=== PATIENT | male | born 2000 | race Caucasian/White ===

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

== ENCOUNTER 2022-05-02 20:32 | Emergency (ER) | payer OTHER ==
[2022-05-02 20:48] VITALS: O2SAT 96
--- NOTE | 2022-05-02 21:22 | ERPHSYRPT ---
- History of Present Illness Time Seen by Provider: 05/02/22 21:31 Source: patient Exam Limitations: no limitations Patient Subjective Stated Complaint: Patient states : I was cutting a drawstring that was in gym pants with a pear knife and knife slipped cutting the back of my left forearm." Triage Nursing Assessment: Patient A/O times 4. Patient able to follow instructions without difficulty. Patient has laceration that measures 1.0 X 0.3 X 0.2 to posterior left forearm. Very minimal amounts of bleeding. Area washed with NS. Patient tolerated well. No S/S of infection. Surrounding skin WNL. Edges well approximated. Physician History: Patient accidentally cut himself with a knife while cutting the string off of his gym pants. Injury just occurred prior to arrival. Tetanus up-to-date. No other injuries reported. Wound measures 1 cm. No active bleeding. Symptoms are mild to moderate in intensity. No specific worsening or improving factors. No blunt trauma. Patient voices no other complaints or concerns at this time. Portions of this note were created with voice recognition technology. There may be grammatical, spelling, punctuation or sound alike errors Timing/Duration: today Severity: moderate Modifying Factors: Improves With: nothing Associated Symptoms: denies symptoms Allergies/Adverse Reactions: sulfamethoxazole [From Bactrim] Allergy (Severe, Verified 11/25/19 13:29) Swelling trimethoprim [From Bactrim] Allergy (Severe, Verified 11/25/19 13:29) Swelling Home Medications: Aripiprazole [Abilify Maintena] 400 mg PO DAILY 11/25/19 [History] Trazodone HCl [Desyrel] 100 mg PO DAILY 11/25/19 [History] Hx Tetanus, Diphtheria Vaccination/Date Given: No Hx Influenza Vaccination/Date Given: No Hx Pneumococcal Vaccination/Date Given: No Immunizations Up to Date: Yes Travel Risk - International Travel Have you traveled outside of the country in past 3 weeks: No - Coronavirus Screening Are you exhibiting any of the following symptoms?: No Close contact with a COVID-19 positive Pt in past 14-21 Days: No - Vaccine Status Have you recieved a Covid-19 vaccination: No - Review of Systems Constitutional: No Symptoms, No Fever, No Chills Eyes: No Symptoms Ears, Nose, & Throat: No Symptoms Respiratory: No Symptoms, No Cough, No Dyspnea Cardiac: No Symptoms, No Chest Pain, No Edema, No Syncope Abdominal/Gastrointestinal: No Symptoms, No Abdominal Pain, No Nausea, No Vomiting, No Diarrhea Genitourinary Symptoms: No Symptoms, No Dysuria Musculoskeletal: No Symptoms, No Back Pain, No Neck Pain Skin: No Symptoms, No Rash Neurological: No Symptoms, No Dizziness, No Focal Weakness, No Sensory Changes Psychological: No Symptoms Endocrine: No Symptoms Hematologic/Lymphatic: No Symptoms Immunological/Allergic: No Symptoms All Other Systems: Reviewed and Negative - Past Medical History Pertinent Past Medical History: Yes Neurological History: No Pertinent History ENT History: No Pertinent History Cardiac History: No Pertinent History Respiratory History: No Pertinent History Endocrine Medical History: No Pertinent History Musculoskeletal History: No Pertinent History GI Medical History: No Pertinent History History: No Pertinent History Psycho-Social History: Attention Deficit Disorder Male Reproductive Disorders: No Pertinent History Other Medical History: adhd. bipolar - Past Surgical History Past Surgical History: Yes Neuro Surgical History: No Pertinent History Cardiac: No Pertinent History Respiratory: No Pertinent History Gastrointestinal: No Pertinent History Genitourinary: No Pertinent History Musculoskeletal: No Pertinent History Male Surgical History: No Pertinent History Other Surgical History: tonsils. adnoids - Social History Smoking Status: Current every day smoker How long have you smoked: 5 years Exposure to second hand smoke: Yes Drug Use: none Patient Lives Alone: No - Nursing Vital Signs Nursing Vital Signs: Initial Vital Signs Temperature 98.7 F 05/02/22 20:32 Pulse Rate 88 05/02/22 20:32 Respiratory Rate 20 05/02/22 20:32 Blood Pressure 122/74 05/02/22 20:32 O2 Sat by Pulse Oximetry 96 05/02/22 20:32 Pain Scale Pain Intensity 5 - Physical Exam General Appearance: no apparent distress, alert Eye Exam: PERRL/EOMI, eyes nml inspection Ears, Nose, Throat Exam: normal ENT inspection, TMs normal, pharynx normal, moist mucous membranes Neck Exam: normal inspection, non-tender, supple, full range of motion Respiratory Exam: normal breath sounds, lungs clear, airway intact, No respiratory distress Cardiovascular Exam: regular rate/rhythm, normal heart sounds, normal peripheral pulses Gastrointestinal/Abdomen Exam: soft, normal bowel sounds, No tenderness, No distention, No mass Back Exam: normal inspection, normal range of motion, No CVA tenderness, No vertebral tenderness Extremity Exam: normal inspection, normal range of motion, pelvis stable, other (1 cm laceration medial aspect left distal forearm. No active bleeding. No other injuries reported) Neurologic Exam: alert, oriented x 3, cooperative, normal mood/affect, nml cerebellar function, nml station & gait, sensation nml, No motor deficits Skin Exam: normal color, warm, dry, No rash Lymphatic Exam: No adenopathy SpO2 Interpretation: normal SpO2: 96 O2 Delivery: Room Air Procedures - Laceration/Wound Repair Left Distal Other Time of Procedure: 21:29 Wound Location: Left (Left distal forearm medial aspect) Wound Length (cm): 1 Wound's Depth, Shape: superficial Wound Explored: clean Irrigated: Yes Hibiclens Prep: Yes Anesthesia: local, 1% Lidocaine Volume Anesthetic (ccs): 3 Wound Debrided: No debridement indicated Wound Repaired With: sutures Suture Size/Type: 5-0, nylon Number of Sutures: 3 Layer Closure?: Yes Sterile Dressing Applied?: Yes Splint Applied?: No Sling Applied?: No - Course Nursing assessment & vital signs reviewed: Yes - Progress Progress: improved Progress Note: Wound closed using 3 simple interrupted sutures. No complications. Patient tolerated procedure well. Patient neurovascular intact distally pre and post procedure. Mother at bedside. Patient mother voiced no other complaints or concerns at this time. Patient to follow-up with primary care doctor within 48 hours for reevaluation. No indication for antibiotics Portions of this note were created with voice recognition technology. There may be grammatical, spelling, punctuation or sound alike errors 05/02/22 21:32 Counseled pt/family regarding: diagnosis, need for follow-up - Departure Departure Disposition: Home Clinical Impression: Laceration Condition: Stable Critical Care Time: No Referrals: ERWIN MCCALL [Primary Care Provider] - Follow up/PCP as directed Instructions: Wound Care (DC), Laceration Repair With Stitches ED Additional Instructions: Discharge/Care Plan GEOVANNAJASS LUKE was seen on 05/02/22 in the Emergency Room. The patient was counseled regarding Diagnosis,Lab results, Imaging studies, need for follow up and when to return to the Emergency Room. Prescriptions given: Discharge Note I have spoken with the patient and/or caregivers. I have explained the patient's condition, diagnosis and treatment plan based on the information available to me at this time. I have answered the patient's and/or caregiver's questions and addressed any concerns. The patient and/or caregivers have as good understanding of the patient's diagnosis, condition and treatment plan as can be expected at this point. The vital signs have been stable. The patient's condition is stable and appropriate for discharge from the emergency department. The patient will pursue further outpatient evaluation with the primary care physician or other designated or consulting physician as outlined in the discharge instructions. The patient and/or caregivers are agreeable to this plan of care and follow-up instructions have been explained in detail. The patient and/or caregivers have received these instruction. The patient/and or caregivers are aware that any significant change in condition or worsening of symptoms should prompt an immediate return to this or the closest emergency department or call 911.
[2022-05-02 21:36] VITALS: BP 131/77; PULSE 80
== END 2022-05-02 21:32 | disposition home or self-care (01) ==
LOC: ED 20:32
DX: S51.812A Laceration without foreign body of left forearm, initial encounter (principal); W26.0XXA Contact with knife, initial encounter; Z79.899 Other long term (current) drug therapy; Z28.310 Unvaccinated for COVID-19; Z72.0 Tobacco use
CPT/HCPCS: 12001; 99281

== ENCOUNTER 2022-06-08 18:16 | Emergency (ER) | payer OTHER ==
[2022-06-08 19:05] LABS: Absolute Neutrophil Ct (ANC) 4.08 x10^3/uL (1.4-6.9); Basophil (Absolute #) 0.04 x10^3/uL (0-0.4); Eosinophil (Absolute #) 0.45 x10^3/uL (0-0.5); Hematocrit 47.6 % (42-50); Lymphocyte (Absolute #) 2.49 x10^3/uL (1.0-4.6); Lymphocytes % 33.2 % (24.0-44.0); Mean Cell Volume 95.8 fL (78-100); Mean Corpuscular Hemoglobin 32.2 pg (26-32); Mean Corpuscular Hgb Concent. 33.6 g/dL (32-36); Mean Platelet Volume 9.9 fL (7.5-11.0); Monocyte (Absolute #) 0.42 x10^3/uL (0.0-1.3); Monocytes % 5.6 % (0.0-12.0); Neutrophil % 54.4 % (36.0-66.0); Platelet Count 183 x10^3/uL (150-450); Red Blood Count 4.97 x10^6/uL (4.1-5.6); White Blood Count 7.5 x10^3/uL (4.0-10.5)
[2022-06-08 19:13] LABS: Appearance Clear (Clear); Bacteria None Seen /HPF (None Seen); Bilirubin Negative (Negative); Blood Negative (Negative); Epithelial Cells None Seen /HPF (None Seen); Glucose, Urine Negative (Negative); Hyaline Casts NONE SEEN /LPF (0-2); Ketones Trace (Negative); Leukocyte Esterase Negative (Negative); Nitrite Negative (Negative); Protein,Urine Dip Trace (Negative); RBC 0-2 /HPF (0-5); Specific Gravity 1.025 (1.005-1.030); WBC 0-2 /HPF (0-5)
[2022-06-08 19:18] LABS: ACETAMINOPHEN < 10 ug/ml (10-30); ALBUMIN 4.6 g/dL (3.5-5.0); ALKALINE PHOSPHATASE 81 U/L (38-126); ANION GAP 11.5 MEQ/L (5-15); BLOOD UREA NITROGEN 7 mg/dL (9-20); CHLORIDE 105 mmol/L (98-107); Calcium 9.1 mg/dL (8.4-10.2); Carbon Dioxide 29 mmol/L (22-30); Creatinine 1 1.04 mg/dL (0.66-1.25); EST GLOMERULAR FILTRATION RATE > 60.0 ML/MIN; Glucose 110 mg/dL (74-106); Potassium 4.4 mmol/L (3.5-5.1); SALICYLATE < 1.0 mg/dL (2-20); SGOT/AST 35 U/L (17-59); SGPT/ALT 28 U/L (0-50); SODIUM 141 mmol/L (137-145); Total Protein 7.9 g/dL (6.3-8.2)
[2022-06-08 19:25] LABS: ADD URINE CULTURE? NO (NO)
[2022-06-08 19:26] LABS: Amphetamine,Urine NEGATIVE (NEGATIVE); Barbiturate,Urine NEGATIVE (NEGATIVE); Benzodiazepine,Urine NEGATIVE (NEGATIVE); Cocaine,Urine NEGATIVE (NEGATIVE); Methadone,Urine NEGATIVE (NEGATIVE); Opiate,Urine NEGATIVE (NEGATIVE); PCP,Urine NEGATIVE (NEGATIVE); THC,Urine NEGATIVE (NEGATIVE)
--- NOTE | 2022-06-08 20:05 | ERPHSYRPT ---
- History of Present Illness Time Seen by Provider: 06/08/22 18:19 Source: patient, police Exam Limitations: no limitations Patient Subjective Stated Complaint: Pt was brought in by law enforcement due to stating to family members that he was going to kill himself while holding a knife up to his throat while they were fighting Triage Nursing Assessment: Pt was brought to the ER by law enforcement, hypertensive, denies pain, pt had been asleep at home and his family members were arguing and it woke him up and he had a headache and he got angry and was yelling at them to shut up and he placed a knife up to his neck and stated that he was going to kill himself and then at some point he put it back and his sister called 911, pt states that he thinks about suicide about once a month or so and it is only when he is angry about something, he states that he would never go through with it, pt has a hx of ADHD, pt does not have a job, pt lives with his grandmother and tonite his mother, sister and brother were all over at the house, pt was cussing some when he first arrived and we told him that he needed to settle down and he did with no issues Physician History: 21 years old male with history of ADHD, insomnia on trazodone is brought in the ER by PD after he pulled a knife up to his throat stating that he is going to kill himself. Patient reports he was having a headache, was sleeping when his mom and grandma started arguing waking him up from sleep. He got angry and argues with them to stop which they did not and he pulled a knife. Reports he did it only to stop them from arguing as he has done in the past and it worked. He denies any suicidal or homicidal ideations . He does not have a job and living with grandmother which is stressful but does not mean he wants to . Denies any ideas of hopelessness, helplessness. No history of suicidal or homicidal attempts in the past. Timing/Duration: today Severity of Symptoms-Max: moderate Severity of Symptoms-Current: moderate Context related to: living circumstances Suicidal thoughts: gesture Associated Symptoms: frustrated Previous symptoms: same symptoms as today Allergies/Adverse Reactions: sulfamethoxazole [From Bactrim] Allergy (Severe, Verified 06/08/22 18:42) Swelling trimethoprim [From Bactrim] Allergy (Severe, Verified 06/08/22 18:42) Swelling Home Medications: Trazodone HCl [Desyrel] 100 mg PO DAILY 11/25/19 [History] Hx Tetanus, Diphtheria Vaccination/Date Given: No Hx Influenza Vaccination/Date Given: No Hx Pneumococcal Vaccination/Date Given: No Immunizations Up to Date: (unknown) Travel Risk - International Travel Have you traveled outside of the country in past 3 weeks: No - Coronavirus Screening Are you exhibiting any of the following symptoms?: No Close contact with a COVID-19 positive Pt in past 14-21 Days: No - Vaccine Status Have you recieved a Covid-19 vaccination: No - Past Medical History Pertinent Past Medical History: Yes Neurological History: No Pertinent History ENT History: No Pertinent History Cardiac History: No Pertinent History Respiratory History: No Pertinent History Endocrine Medical History: No Pertinent History Musculoskeletal History: No Pertinent History GI Medical History: No Pertinent History History: No Pertinent History Psycho-Social History: Attention Deficit Disorder Male Reproductive Disorders: No Pertinent History Other Medical History: adhd - Past Surgical History Past Surgical History: Yes Neuro Surgical History: No Pertinent History Cardiac: No Pertinent History Respiratory: No Pertinent History Gastrointestinal: No Pertinent History Genitourinary: No Pertinent History Musculoskeletal: No Pertinent History Male Surgical History: No Pertinent History Other Surgical History: . - Social History Smoking Status: Current every day smoker How long have you smoked: 5 years Exposure to second hand smoke: Yes Drug Use: none Patient Lives Alone: No - Review of Systems Constitutional: No Symptoms Eyes: No Symptoms Ears, Nose, & Throat: No Symptoms Respiratory: No Symptoms Cardiac: No Symptoms Abdominal/Gastrointestinal: No Symptoms Genitourinary Symptoms: No Symptoms Musculoskeletal: No Symptoms Skin: No Symptoms Neurological: No Symptoms Psychological: Anxiety Endocrine: No Symptoms Hematologic/Lymphatic: No Symptoms Immunological/Allergic: No Symptoms - Nursing Vital Signs Nursing Vital Signs: Initial Vital Signs Temperature 98.7 F 06/08/22 18:17 Pulse Rate 94 H 06/08/22 18:17 Blood Pressure 183/97 06/08/22 18:17 O2 Sat by Pulse Oximetry 97 06/08/22 18:17 Pain Scale Pain Intensity 0 - Physical Exam General Appearance: no apparent distress, alert Eyes, Ears, Nose, Throat Exam: normal ENT inspection Neck Exam: normal inspection, non-tender, supple, full range of motion Respiratory Exam: normal breath sounds, lungs clear Cardiovascular Exam: regular rate/rhythm, normal heart sounds Gastrointestinal/Abdominal Exam: soft, normal bowel sounds, No tenderness Extremities Exam: normal inspection, normal range of motion Current Suicidality: denies suicide plan Neurological Exam: alert, calm, 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, oriented x 3 Appearance: appropriate appearance, appropriate insight, neat, no memory impairment Behavior/Eye Contact/Speech: alert & cooperative, good eye contact, normal speech Thoughts/Hallucinations: normal thought pattern, no apparent hallucination Skin Exam: normal color SpO2 Interpretation: normal SpO2: 95 O2 Delivery: Room Air - Course EKG Interpreted by Me: RATE (96), Sinus Rhythm, NORMAL AXIS, NORMAL INTERVALS, NORMAL QRS Ordered Tests: Active Orders 24 hr Category Date Time Status ACETAMINOPHEN Stat Lab 06/08/22 19:01 Completed CBC W DIFF Stat Lab 06/08/22 19:01 Completed CMP Stat Lab 06/08/22 19:01 Completed SALICYLATE Stat Lab 06/08/22 19:01 Completed UA W/RFX UR CULTURE Stat Lab 06/08/22 19:01 Completed Urine Triage Profile Stat Lab 06/08/22 19:01 Completed Lab/Rad Data: Laboratory Result Diagrams 06/08/22 19:01 06/08/22 19:01 Laboratory Results 06/08/22 06/08/22 06/08/22 Range/Units 19:01 19:01 19:01 WBC 7.5 (4.0-10.5) x10^3/uL RBC 4.97 (4.1-5.6) x10^6/uL Hgb 16.0 (12.5-18.0) g/dL Hct 47.6 (42-50) % MCV 95.8 (78-100) fL MCH 32.2 H (26-32) pg MCHC 33.6 (32-36) g/dL RDW 12.0 (11.5-14.0) % Plt Count 183 (150-450) x10^3/uL MPV 9.9 (7.5-11.0) fL Gran % 54.4 (36.0-66.0) % Immature Gran % (Auto) 0.3 (0.00-0.4) % Nucleat RBC Rel Count 0.0 (0.00-0.1) % Eos # (Auto) 0.45 (0-0.5) x10^3/uL Immature Gran # (Auto) 0.02 (0.00-0.03) x10^3u/L Absolute Lymphs (auto) 2.49 (1.0-4.6) x10^3/uL Absolute Monos (auto) 0.42 (0.0-1.3) x10^3/uL Absolute Nucleated RBC 0.00 (0.00-0.01) x10^3u/L Lymphocytes % 33.2 (24.0-44.0) % Monocytes % 5.6 (0.0-12.0) % Eosinophils % 6.0 H (0.00-5.0) % Basophils % 0.5 (0.0-0.4) % Absolute Granulocytes 4.08 (1.4-6.9) x10^3/uL Basophils # 0.04 (0-0.4) x10^3/uL Sodium 141 (137-145) mmol/L Potassium 4.4 (3.5-5.1) mmol/L Chloride 105 (98-107) mmol/L Carbon Dioxide 29 (22-30) mmol/L Anion Gap 11.5 (5-15) MEQ/L BUN 7 L (9-20) mg/dL Creatinine 1.04 (0.66-1.25) mg/dL Estimated GFR > 60.0 ML/MIN Glucose 110 H (74-106) mg/dL Calcium 9.1 (8.4-10.2) mg/dL Total Bilirubin 0.40 (0.2-1.3) mg/dL AST 35 (17-59) U/L ALT 28 (0-50) U/L Alkaline Phosphatase 81 (38-126) U/L Serum Total Protein 7.9 (6.3-8.2) g/dL Albumin 4.6 (3.5-5.0) g/dL Urine Color (Yellow) Urine Appearance (Clear) Urine pH (4.6-8.0) Ur Specific [place] (1.005-1.030) Urine Protein (Negative) Urine Glucose (UA) (Negative) mg/dL Urine Ketones (Negative) Urine Blood (Negative) Urine Nitrite (Negative) Urine Bilirubin (Negative) Urine Urobilinogen (0.2) mg/dL Ur Leukocyte Esterase (Negative) U Hyaline Cast (Auto) (0-2) /LPF Urine Microscopic RBC (0-5) /HPF Urine Microscopic WBC (0-5) /HPF Ur Epithelial Cells (None Seen) /HPF Urine Bacteria (None Seen) /HPF Urine Culture Reflexed (NO) Salicylates < 1.0 L (2-20) mg/dL Urine Opiates Level NEGATIVE (NEGATIVE) Ur Methadone NEGATIVE (NEGATIVE) Acetaminophen < 10 L (10-30) ug/ml Urine Barbiturates NEGATIVE (NEGATIVE) Ur Phencyclidine (PCP) NEGATIVE (NEGATIVE) Urine Amphetamine NEGATIVE (NEGATIVE) U Benzodiazepine Level NEGATIVE (NEGATIVE) Urine Cocaine NEGATIVE (NEGATIVE) Urine Marijuana (THC) NEGATIVE (NEGATIVE) 06/08/22 Range/Units 19:01 WBC (4.0-10.5) x10^3/uL RBC (4.1-5.6) x10^6/uL Hgb (12.5-18.0) g/dL Hct (42-50) % MCV (78-100) fL MCH (26-32) pg MCHC (32-36) g/dL RDW (11.5-14.0) % Plt Count (150-450) x10^3/uL MPV (7.5-11.0) fL Gran % (36.0-66.0) % Immature Gran % (Auto) (0.00-0.4) % Nucleat RBC Rel Count (0.00-0.1) % Eos # (Auto) (0-0.5) x10^3/uL Immature Gran # (Auto) (0.00-0.03) x10^3u/L Absolute Lymphs (auto) (1.0-4.6) x10^3/uL Absolute Monos (auto) (0.0-1.3) x10^3/uL Absolute Nucleated RBC (0.00-0.01) x10^3u/L Lymphocytes % (24.0-44.0) % Monocytes % (0.0-12.0) % Eosinophils % (0.00-5.0) % Basophils % (0.0-0.4) % Absolute Granulocytes (1.4-6.9) x10^3/uL Basophils # (0-0.4) x10^3/uL Sodium (137-145) mmol/L Potassium (3.5-5.1) mmol/L Chloride (98-107) mmol/L Carbon Dioxide (22-30) mmol/L Anion Gap (5-15) MEQ/L BUN (9-20) mg/dL Creatinine (0.66-1.25) mg/dL Estimated GFR ML/MIN Glucose (74-106) mg/dL Calcium (8.4-10.2) mg/dL Total Bilirubin (0.2-1.3) mg/dL AST (17-59) U/L ALT (0-50) U/L Alkaline Phosphatase (38-126) U/L Serum Total Protein (6.3-8.2) g/dL Albumin (3.5-5.0) g/dL Urine Color Dark Yellow (Yellow) Urine Appearance Clear (Clear) Urine pH 6.0 (4.6-8.0) Ur Specific [place] 1.025 (1.005-1.030) Urine Protein Trace A (Negative) Urine Glucose (UA) Negative (Negative) mg/dL Urine Ketones Trace A (Negative) Urine Blood Negative (Negative) Urine Nitrite Negative (Negative) Urine Bilirubin Negative (Negative) Urine Urobilinogen 1.0 A (0.2) mg/dL Ur Leukocyte Esterase Negative (Negative) U Hyaline Cast (Auto) NONE SEEN (0-2) /LPF Urine Microscopic RBC 0-2 (0-5) /HPF Urine Microscopic WBC 0-2 (0-5) /HPF Ur Epithelial Cells None Seen (None Seen) /HPF Urine Bacteria None Seen (None Seen) /HPF Urine Culture Reflexed NO (NO) Salicylates (2-20) mg/dL Urine Opiates Level (NEGATIVE) Ur Methadone (NEGATIVE) Acetaminophen (10-30) ug/ml Urine Barbiturates (NEGATIVE) Ur Phencyclidine (PCP) (NEGATIVE) Urine Amphetamine (NEGATIVE) U Benzodiazepine Level (NEGATIVE) Urine Cocaine (NEGATIVE) Urine Marijuana (THC) (NEGATIVE) - Progress Progress: improved Progress Note: 06/08/22 22:41 21 years old with history of ADHD, insomnia is evaluated at request of law enforcement after patient has pulled a knife to his throat and threatening to kill himself. Apparently patient was sleeping when his grandma/mother started a rguing and woke him up. He was having some headache earlier before he went to sleep. Patient tried to stop them and they did not. He pulled a knife in an attempt to/strategy to stop them arguing. Patient has done multiple times this strategy which worked to stop them arguing. Sister call PD and patient is brought in here. Initially patient was alert and angry, frustrated but quickly calmed down and remained calm throughout stay in the ER. Patient denies having actual plan/means/intent to by committing suicide. Is medically cleared, [facility] has evaluated patient and do not think patient is an imminent threat to self or anyone else. He is made safety plan and will follow-up outpatient with therapist. Discussed signs symptoms of worsening needing return to ER which he seems understanding. Patient is made sure that he will go to grandmother house and will stay under supervision for next 24 to 48 hours. Counseled pt/family regarding: lab results, diagnosis, need for follow-up - Departure Departure Disposition: Home Clinical Impression: Aggressive behavior of adult Condition: Stable Critical Care Time: No Referrals: ERWIN MCCALL [Primary Care Provider] - Follow up/PCP as directed (1-2 days for reevaluation) Instructions: Depression, Adult (DC), Preventing Adolescent Suicide Additional Instructions: Stay with responsible person for next 24 to 48 hours. Grandmother is made sure that she will keep every sharp object locked in safe place. Call 911 or return to ER for any worsening of depressive symptoms/suicidal ideations intent or plan etc. Follow-up with [facility] for reevaluation. Keep appointment with your primary care.
[2022-06-08 23:21] VITALS: BP 144/87; PULSE 78; O2SAT 97
== END 2022-06-08 23:40 | disposition home or self-care (01) ==
LOC: ED 18:16 → EEVIPCON 18:16 → ED 23:40
DX: F91.9 Conduct disorder, unspecified (principal); Z59.89 Other problems related to housing and economic circumstances; Z79.899 Other long term (current) drug therapy; Z28.310 Unvaccinated for COVID-19; Z72.0 Tobacco use
CPT/HCPCS: 36415; 80053; 80307; 81001; 85025; 90791; 99283; Q3014

== ENCOUNTER 2022-06-17 00:19 | Emergency (ER) | payer OTHER ==
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
[2022-06-17 00:46] LABS: Absolute Neutrophil Ct (ANC) 7.02 x10^3/uL (1.4-6.9); BASOPHIL % 0.5 % (0.0-0.4); Basophil (Absolute #) 0.06 x10^3/uL (0-0.4); Eosinophil % 3.1 % (0.00-5.0); Eosinophil (Absolute #) 0.36 x10^3/uL (0-0.5); Hematocrit 46.4 % (42-50); Hemoglobin 15.6 g/dL (12.5-18.0); IMMATURE GRAN # 0.06 x10^3u/L (0.00-0.03); IMMATURE GRAN % 0.5 % (0.00-0.4); Lymphocyte (Absolute #) 3.27 x10^3/uL (1.0-4.6); Lymphocytes % 28.3 % (24.0-44.0); Mean Cell Volume 95.7 fL (78-100); Mean Corpuscular Hemoglobin 32.2 pg (26-32); Mean Corpuscular Hgb Concent. 33.6 g/dL (32-36); Mean Platelet Volume 9.7 fL (7.5-11.0); Monocyte (Absolute #) 0.78 x10^3/uL (0.0-1.3); Monocytes % 6.8 % (0.0-12.0); Neutrophil % 60.8 % (36.0-66.0); Platelet Count 297 x10^3/uL (150-450); Red Blood Count 4.85 x10^6/uL (4.1-5.6); White Blood Count 11.6 x10^3/uL (4.0-10.5)
[2022-06-17 00:52] LABS: Appearance Clear (Clear); Bilirubin Small (Negative); Blood Negative (Negative); Glucose, Urine Negative (Negative); Ketones Trace (Negative); Leukocyte Esterase Negative (Negative); Nitrite Negative (Negative); Ph 6.5 (4.6-8.0); Protein,Urine Dip 300 (Negative); Specific Gravity >=1.030 (1.005-1.030)
[2022-06-17 00:59] LABS: Epithelial Cells None Seen /HPF (None Seen); RBC 0-2 /HPF (0-5); WBC 0-2 /HPF (0-5)
[2022-06-17 01:01] LABS: ACETAMINOPHEN < 10 ug/ml (10-30); ALKALINE PHOSPHATASE 92 U/L (38-126); BLOOD UREA NITROGEN 9 mg/dL (9-20); CHLORIDE 104 mmol/L (98-107); Calcium 9.6 mg/dL (8.4-10.2); Carbon Dioxide 27 mmol/L (22-30); Creatinine 1 0.92 mg/dL (0.66-1.25); EST GLOMERULAR FILTRATION RATE > 60.0 ML/MIN; ETHYL ALCOHOL < 10 mg/dL (0-10); Glucose 106 mg/dL (74-106); Potassium 3.4 mmol/L (3.5-5.1); SALICYLATE < 1.0 mg/dL (2-20); SGOT/AST 30 U/L (17-59); SGPT/ALT 27 U/L (0-50); SODIUM 141 mmol/L (137-145); Total Protein 8.8 g/dL (6.3-8.2)
[2022-06-17 01:02] LABS: Amphetamine,Urine NEGATIVE (NEGATIVE); Barbiturate,Urine NEGATIVE (NEGATIVE); Benzodiazepine,Urine NEGATIVE (NEGATIVE); Cocaine,Urine NEGATIVE (NEGATIVE); Methadone,Urine NEGATIVE (NEGATIVE); Opiate,Urine NEGATIVE (NEGATIVE); PCP,Urine NEGATIVE (NEGATIVE); THC,Urine NEGATIVE (NEGATIVE)
[2022-06-17 01:08] LABS: Bacteria Few /HPF (None Seen); Granular Casts 0-2 /LPF (None Seen); Hyaline Casts 0-2 /LPF (0-2)
[2022-06-17 01:09] LABS: ADD URINE CULTURE? NO (NO); Mucus Rare /HPF (NEGATIVE)
[2022-06-17 01:39] LABS: INFLUENZA B NEGATIVE (NEGATIVE); RESPIRATORY SYNCTIAL VIRUS NEGATIVE (Negative); SARS-CoV-2 Xpert Express NEGATIVE (NEGATIVE)
[2022-06-17 01:44] LABS: INFLUENZA A POSITIVE (NEGATIVE)
[2022-06-17 06:15] VITALS: BP 143/75; PULSE 79; O2SAT 98
== END 2022-06-17 06:51 | disposition home or self-care (01) ==
LOC: ED 00:19
DX: R45.4 Irritability and anger (principal); F43.10 Post-traumatic stress disorder, unspecified; F90.9 Attention-deficit hyperactivity disorder, unspecified type; F79 Unspecified intellectual disabilities; R45.851 Suicidal ideations; Z79.899 Other long term (current) drug therapy; Z28.310 Unvaccinated for COVID-19; Z72.0 Tobacco use
CPT/HCPCS: 0241U; 36415; 80053; 80307; 81001; 85025; 93005; 99284; 90791; Q3014; G0480